=== PATIENT | female | born 1990 | race Caucasian/White ===

== ENCOUNTER 2023-11-15 21:03 | Emergency (ER) | payer OTHER ==
[2023-11-15 21:12] VITALS: BP 160/79; PULSE 103; RESP 18; TEMP 98.9; BMI 29.2
[2023-11-15] MEDS ORDERED: LIDOCAINE HCL 2% JELLY 10 ML CARTRIDGE PR ONE (22:31)
[2023-11-15] MEDS ORDERED: HYDROCORTISONE 2.5% TOPICAL CREAM 30 GM TUBE PR ONE (22:31)
[2023-11-15] MEDS ORDERED: IBUPROFEN 600 MG TABLET (FP) PO ONE ×2 (22:32→23:00)
[2023-11-15] MEDS ORDERED: LIDOCAINE HCL 2% JELLY 6 ML TP ONE (23:00)
== END 2023-11-16 01:00 | disposition home or self-care (01) ==
LOC: JER 21:03
DX: O87.2 Hemorrhoids in the puerperium (principal); O99.63 Diseases of the digestive system complicating the puerperium; K59.00 Constipation, unspecified; K62.89 Other specified diseases of anus and rectum
CPT/HCPCS: 99283-25

== ENCOUNTER 2024-05-01 12:11 | Emergency (ER) | payer OTHER ==
[2024-05-01 13:01] VITALS: BP 105/65; PULSE 73; RESP 16; TEMP 98.6; BMI 35.6
[2024-05-01] MEDS ORDERED: IBUPROFEN 600 MG TABLET (FP) PO ONE (13:04)
[2024-05-01] MEDS: IBUPROFEN 600 MG TABLET (FP) PO ONE (13:06)
== END 2024-05-01 13:06 | disposition home or self-care (01) ==
LOC: JERFT 12:11
DX: H60.393 Other infective otitis externa, bilateral (principal); H92.03 Otalgia, bilateral
CPT/HCPCS: 99283-25